=== PATIENT | male | born 2000 | race Caucasian/White ===

== ENCOUNTER 2018-03-14 20:30 | Emergency (ER) | payer MEDICAID, OTHER ==
[~2018-03-14] VITALS: Ht 175.3 cm; Wt 50.0 kg
[2018-03-14] MEDS ORDERED: ondansetron 4mg rapidly disintigrating tab PO ONE (21:05)
[2018-03-14] MEDS ORDERED: ketorolac trometh inj. 60 MG/2 ML VIAL IM ONE (22:00)
[2018-03-14] MEDS ORDERED: acetaminophen 325mg tablet PO ONE (22:00)
[2018-03-14] MEDS ORDERED: proCHLORperazine 10 MG/2 ml inj IM ONE (22:00)
[2018-03-14 22:43] VITALS: BP 118/68
== END 2018-03-14 22:48 | disposition home or self-care (01) ==
LOC: ER 20:31
DX: S06.0X0A Concussion without loss of consciousness, initial encounter (principal); Y08.89XA Assault by other specified means, initial encounter; Y93.89 Activity, other specified; Y92.89 Other specified places as the place of occurrence of the external cause; Y99.8 Other external cause status
CPT/HCPCS: 70450; 72125; 96372; 99284; J0780; J1885

== ENCOUNTER 2018-07-31 21:37 | Emergency (ER) | payer MEDICAID ==
[~2018-07-31] VITALS: Ht 175.3 cm; Wt 71.2 kg
[2018-07-31] MEDS ORDERED: ibuprofen tablet 400 MG TABLET PO ONE (22:25)
[2018-07-31] MEDS ORDERED: acetaminophen 325mg tablet PO ONE (22:25)
[2018-07-31] MEDS ORDERED: ACET-2615 PO (22:35)
[2018-07-31] MEDS ORDERED: IBUP-1984 PO (22:35)
[2018-07-31 22:40] VITALS: BP 132/93
== END 2018-07-31 22:42 | disposition home or self-care (01) ==
LOC: ER 21:38
DX: M79.672 Pain in left foot (principal); R60.0 Localized edema
CPT/HCPCS: 73630; 99284; A6449